=== PATIENT | male | born 1990 | race Caucasian/White ===

== ENCOUNTER 2016-09-08 20:14 | Emergency (ER) | payer OTHER ==
[2016-09-08 20:26] VITALS: BP 100/55; PULSE 85; TEMP 103.1; BMI 25.8
--- NOTE | 2016-09-08 20:47 | PDOC ---
History of Present Illness - History of Present Illness Initial Comments: 09/08/16 22:22 Patient is a 26 year old male with significant medical hx of upper respiratory infections and tonsillar hypertrophy who is presenting to the ED for fever, chills, myalgia, rhinorrhea, nasal congestion, lower back pain, cough, and posttussive vomiting since yesterday. Patient reports enlarged tonsils that are making it difficult for him to breathe and open his mouth. The patient has been eating and drinking well. He was hospitalized for the same symptoms last year and was scheduled for a tonsillectomy but never followed through. The patient did not receive the flu vaccine this year. <Flakita Barragan - Last Filed: 09/08/16 22:22> <Nava Augustin - Last Filed: 09/09/16 00:39> - General Chief Complaint: Pain Stated Complaint: FEVER/VOMITING Time Seen by Provider: 09/08/16 20:47 Past History <Flakita Barragan - Last Filed: 09/08/16 22:22> - Past Medical History Other medical history: chronic swollen lymph nodes - Immunization History Immunization Up to Date: Yes - Psycho/Social/Smoking Cessation Hx Anxiety: No Suicidal Ideation: No Smoking History: Never smoked Have you smoked in the past 12 months: No Number of Cigarettes Smoked Daily: 1 Hx Alcohol Use: No Drug/Substance Use Hx: No Substance Use Type: None <Nava Augustin - Last Filed: 09/09/16 00:39> - Past Medical History Allergies/Adverse Reactions: Allergies Allergy/AdvReac Type Severity Reaction Status Date / Time No Known Allergies Allergy Verified 09/08/16 20:26 Home Medications: Ambulatory Orders No Home Medications 0 dose .ROUTE UTDICT 07/15/13 Cyclobenzaprine HCl [Flexeril -] 10 mg PO TID PRN #15 tablet 01/15/16 Naproxen [Naprosyn -] 500 mg PO BID PRN #14 tablet 01/15/16 Oseltamivir Phosphate [Tamiflu -] 75 mg PO BID #10 capsule 09/08/16 Review of Systems - Review of Systems Comments:: 09/08/16 22:24 CONSTITUTIONAL: Present: fever, chills Absent: diaphoresis, generalized weakness, malaise, loss of appetite HEENT: Present: rhinorrhea, nasal congestion, throat pain, tonsillar swelling Absent: ear pain, eye pain, visual changes CARDIOVASCULAR: Absent: chest pain, syncope, palpitations, irregular heart rate, lightheadedness , peripheral edema RESPIRATORY: Present: cough Absent: shortness of breath, dyspnea with exertion, orthopnea, wheezing, stridor , hemoptysis GASTROINTESTINAL: Present: posttussive vomiting Absent: abdominal pain, abdominal distension, nausea, diarrhea, constipation, melena, hematochezia GENITOURINARY: Absent: dysuria, frequency, urgency, hesitancy, hematuria, flank pain, genital pain MUSCULOSKELETAL: Present: myalgia Absent: arthralgia, joint swelling SKIN: Absent: rash, itching, pallor HEMATOLOGIC/IMMUNOLOGIC: Absent: easy bleeding, easy bruising, lymphadenopathy, frequent infections ENDOCRINE: Absent: unexplained weight gain, unexplained weight loss, heat intolerance, cold intolerance NEUROLOGIC: Absent: headache, focal weakness or paresthesia, dizziness, unsteady gait, seizure, mental status changes, bladder or bowel incontinence. PSYCHIATRIC: Absent: anxiety, depression, suicidal or homicidal ideation, hallucinations <Flakita Barragan - Last Filed: 09/08/16 22:22> *Physical Exam - Vital Signs Last Vital Signs Temp Pulse Resp BP Pulse Ox 103.1 F H 85 18 100/55 09/08/16 20:21 09/08/16 20:21 09/08/16 20:21 09/08/16 20:21 - Physical Exam Comments: 09/08/16 22:28 GENERAL: Well developed, well nourished. Afebrile. Awake and alert. No acute distress. HEENT: Normocephalic, atraumatic. PERRLA, EOMI. No conjunctival pallor. Sclera are non- icteric. Moist mucous membranes. Oropharynx is clear. Enlarged tonsils. NECK: Supple. Full ROM. No JVD. Carotid pulses 2+ and symmetric, without bruits. No thyromegaly. No lymphadenopathy. CARDIOVASCULAR: Regular rate and rhythm. No murmurs, rubs, or gallops. Distal pulses are 2+ and symmetric. PULMONARY: No evidence of respiratory distress. Lungs clear to auscultation bilaterally. No wheezing, rales or rhonchi. ABDOMINAL: Soft. Non-tender. Non-distended. No rebound or guarding. No organomegaly. Normoactive bowel sounds. MUSCULOSKELETAL: Normal range of motion at all joints. No bony deformities or tenderness. No CVA tenderness. EXTREMITIES: No cyanosis. No clubbing. No edema. No calf tenderness. SKIN: Warm and dry. Normal capillary refill. No rashes. No jaundice. NEUROLOGICAL: Alert, awake, appropriate. Moving all extremities. Cranial nerves 2-12 intact. Normal speech. Toes are down-going bilaterally. Gait is normal without ataxia. PSYCHIATRIC: Cooperative. Good eye contact. Appropriate mood and affect. <Flakita Barragan - Last Filed: 09/08/16 22:22> - Vital Signs Last Vital Signs Temp Pulse Resp BP Pulse Ox 103.1 F H 85 18 100/55 09/08/16 20:21 09/08/16 20:21 09/08/16 20:21 09/08/16 20:21 <Nava Augustin - Last Filed: 09/09/16 00:39> ED Treatment Course - Medications Given in the ED: ED Medications Discontinued Medications Generic Name Dose Route Start Last Admin Trade Name Aldoq PRN Reason Stop Dose Admin Ibuprofen 600 mg 09/08/16 21:39 09/08/16 22:06 Motrin - PO 09/08/16 21:40 600 mg ONCE ONE Administration <Flakita Barragan - Last Filed: 09/08/16 22:22> Medical Decision Making - Medical Decision Making 09/08/16 22:30 pt comes with fever and sore throat and coughing up yellow. He never got the flu shot this year. He complains of GERD. He has no flank pain and no abd pain and no chest pain and he has no neuro deficits. 09/09/16 00:38 Pt has normal strep culture but has influenza positive culture; we will teat with tamiflu. <Nava Augustin - Last Filed: 09/09/16 00:39> *DC/Admit/Observation/Transfer - Attestations Scribe Attestion: 09/08/16 22:29 Documentation prepared by Flakita Barragan, acting as clinical specialist medical device for Nava Augustin MD. <Flakita Barragan - Last Filed: 09/08/16 22:22> - Discharge Dispostion Admit: No <Nava Augustin - Last Filed: 09/09/16 00:39> Diagnosis at time of Disposition: Influenza - Discharge Dispostion Disposition: HOME Condition at time of disposition: Stable - Prescriptions Prescriptions: Oseltamivir Phosphate [Tamiflu -] 75 mg PO BID #10 capsule - Referrals Referrals: Wendy Lisa MD [Primary Care Provider] - - Patient Instructions Printed Discharge Instructions: Influenza - Post Discharge Activity Work/School Note: Back to Work
[2016-09-08] MEDS ORDERED: IBUPROFEN 600 MG TABLET (FP) PO ONE ×2 (21:39→21:56)
[2016-09-08] MEDS ORDERED: AZITHROMYCIN 250 MG TABLET (FP) PO ONE (22:31)
[2016-09-08] MEDS ORDERED: AZITHROMYCIN 250 MG TABLET (FP) ONE (22:41)
[2016-09-08] MEDS ORDERED: OSELTAMIVIR PHOSPHATE 30 MG CAPSULE PO ONE (23:36)
[2016-09-08] MEDS ORDERED: OSELTAMIVIR PHOSPHATE 75 MG CAPSULE PO ONE (23:37)
[2016-09-08] MEDS ORDERED: OSELTAMIVIR PHOSPHATE 75 MG CAPSULE ONE (23:51)
== END 2016-09-09 00:04 | disposition home or self-care (01) ==
LOC: JER 20:14
DX: J09.X2 Influenza due to identified novel influenza A virus with other respiratory manifestations (principal); J35.1 Hypertrophy of tonsils
CPT/HCPCS: 71020-TC; 87070; 87430; 87804; 99282-25

== ENCOUNTER 2016-09-11 02:17 | Emergency (ER) | payer OTHER ==
[2016-09-11 02:28] VITALS: BP 127/79; PULSE 79; TEMP 97.7; BMI 25.8
[2016-09-11] MEDS ORDERED: SODIUM CHLORIDE 0.9% 1000 ML INFUS.BAG IV ONE (02:52)
[2016-09-11] MEDS ORDERED: MAG HYDROX/AL HYDROX/SIMETH 30 ML UNIT-DOSE CUP PO ONE (02:52)
[2016-09-11] MEDS ORDERED: FAMOTIDINE 20 MG/50 ML IVPB 50 ML IVPB ONE ×2 (02:52→02:57)
[2016-09-11] MEDS ORDERED: MAG HYDROX/AL HYDROX/SIMETH 30 ML UNIT-DOSE CUP ONE (02:56)
[2016-09-11] MEDS ORDERED: ONDANSETRON 4 MG/2 ML VIAL ONE (02:57)
[2016-09-11 02:59] LABS: BASOPHIL 0.3 % (0-2.0); EOSINOPHIL 1.3 % (0-4.5); MCH 28.4 pg (25.7-33.7); MCHC 34.2 g/dl (32.0-35.9); MEAN CELL VOLUME 82.9 fl (80-96); MEAN PLT VOLUME 9.5 fl (7.5-11.1); NEUTROPHILS 37.4 % (42.8-82.8); PLATELET COUNT 147 K/MM3 (134-434); RDW 12.3 % (11.9-15.9); WHITE BLOOD COUNT 5.2 K/mm3 (4.0-10.0)
[2016-09-11] MEDS ORDERED: ONDANSETRON 4 MG/2 ML VIAL IVPUSH ONE (03:08)
[2016-09-11 04:10] LABS: ALBUMIN 3.6 g/dl (3.4-5.0); ALK PHOS 68 U/L (45-117); ANION GAP 11 (8-16); BILIRUBIN,TOTAL 0.3 mg/dL (0.2-1.0); CALCIUM 8.6 mg/dL (8.5-10.1); CO2 29 mmol/L (21-32); GLUCOSE,RANDOM 89 mg/dL (74-106); SGOT/AST 23 U/L (15-37); SGPT/ALT 24 U/L (12-78); TOT PROT 7.1 g/dl (6.4-8.2)
--- NOTE | 2016-09-11 04:18 | PDOC ---
History of Present Illness - General Chief Complaint: Pain Stated Complaint: ABD PAIN Time Seen by Provider: 09/11/16 02:29 Past History - Past Medical History Allergies/Adverse Reactions: Allergies Allergy/AdvReac Type Severity Reaction Status Date / Time No Known Allergies Allergy Verified 09/11/16 02:25 Home Medications: Ambulatory Orders Oseltamivir Phosphate [Tamiflu -] 75 mg PO BID #10 capsule 09/08/16 Other medical history: denies - Immunization History Immunization Up to Date: Yes - Psycho/Social/Smoking Cessation Hx Anxiety: No Suicidal Ideation: No Smoking History: Never smoked Have you smoked in the past 12 months: No Number of Cigarettes Smoked Daily: 0 Cigars Per Day: 0 Information on smoking cessation initiated: No Hx Alcohol Use: No Drug/Substance Use Hx: No Substance Use Type: None *Physical Exam - Vital Signs Last Vital Signs Temp Pulse Resp BP Pulse Ox 97.7 F 79 20 127/79 100 09/11/16 02:25 09/11/16 02:25 09/11/16 02:25 09/11/16 02:25 09/11/16 02:25 ED Treatment Course - LABORATORY CBC & Chemistry Diagram: 09/11/16 02:50 09/11/16 02:50 - ADDITIONAL ORDERS Additional order review: Laboratory Results 09/11/16 02:50 Sodium 139 Potassium 3.7 Chloride 99 Carbon Dioxide 29 Anion Gap 11 BUN 18 Creatinine 1.0 Creat Clearance w eGFR > 60 Random Glucose 89 Calcium 8.6 Total Bilirubin 0.3 D AST 23 D ALT 24 Alkaline Phosphatase 68 D Total Protein 7.1 Albumin 3.6 Lipase 145 09/11/16 02:50 RBC 5.12 MCV 82.9 MCHC 34.2 RDW 12.3 MPV 9.5 Neutrophils % 37.4 L D Lymphocytes % 43.2 H D Monocytes % 17.8 H D Eosinophils % 1.3 D Basophils % 0.3 - Medications Given in the ED: ED Medications Discontinued Medications Generic Name Dose Route Start Last Admin Trade Name Freq PRN Reason Stop Dose Admin Al Hydroxide/Mg Hydroxide 30 ml 09/11/16 02:52 09/11/16 03:07 Mylanta Oral Suspension - PO 09/11/16 02:53 30 ml ONCE ONE Administration Famotidine/Sodium Chloride 50 mls @ 100 mls/hr 09/11/16 02:52 09/11/16 03:08 Pepcid 20 Mg Premixed Ivpb - IVPB 09/11/16 03:21 100 mls/hr ONCE ONE Administration Ondansetron HCl 4 mg 09/11/16 03:08 09/11/16 03:08 Zofran Injection IVPUSH 09/11/16 03:09 4 mg NOW ONE Administration Sodium Chloride 1,000 ml 09/11/16 02:52 09/11/16 03:08 Normal Saline - IV 09/11/16 02:53 1,000 ml ONCE ONE Administration *DC/Admit/Observation/Transfer Diagnosis at time of Disposition: Abdominal pain Qualifiers: Abdominal location: epigastric Qualified Code(s): R10.13 - Epigastric pain - Discharge Dispostion Disposition: HOME Condition at time of disposition: Stable Admit: No - Referrals Referrals: Wendy Lisa MD [Primary Care Provider] - - Patient Instructions Printed Discharge Instructions: DI for Abdominal Pain-Adult Additional Instructions: Please follow up with Dr. Campos tomorrow. If you experience vomiting , diarrhea, fever, chills, rectal bleeding, blood in vomit, or have any new or worsening symptoms, please return to the ER. Por favor, siga con el Dr. Beth foote. Si experimenta vmitos, diarrea, fiebre, escalofros, sangrado rectal, katerina en vmito, o si tiene s ntomas nuevos o que empeoran, regrese a la yolanda de emergencias. Print Language: UKRAINIAN
== END 2016-09-11 04:36 | disposition home or self-care (01) ==
LOC: JER 02:17
PROC: 3E033GC Introduction of Other Therapeutic Substance into Peripheral Vein, Percutaneous Approach (ICD-10-PCS; principal; 2016-09-11)
DX: R10.13 Epigastric pain (principal)
CPT/HCPCS: 36415; 80053; 83690; 85025; 96365; 96375; 99283-25

== ENCOUNTER 2016-10-28 21:37 | Emergency (ER) | payer OTHER ==
[2016-10-28 22:03] VITALS: BP 132/78; PULSE 62; TEMP 98.3; BMI 26.6
[2016-10-28] MEDS ORDERED: AMOX TR/POT CLAV 875MG/125MG TABLETS (FP) PO ONE (23:37)
--- NOTE | 2016-10-28 23:37 | PDOC ---
[id number] is a 26 year old male, with a significant past medical history, who presents to the emergency department with pain to his left 4th digit s/p amputation earlier today at [facility]. He states he was seen at [facility] earlier today, however, was unable to picker tender medication because his pharmacy was closed. He reports his pain has increase in intensity and has radiated up his left arm to his left anterior chest. He also states he would like the dressing of his wound changed. He denies shortness of breath, headache and dizziness. He denies fever, chills, nausea, vomit, diarrhea and constipation. He denies dysuria, frequency, urgency and hematuria. Allergies: NKDA PCP - Dr. Lisa <Nathalia Warren - Last Filed: 10/29/16 01:46> <Angelica Shepherd - Last Filed: 10/29/16 16:47> - General Chief Complaint: Injury Stated Complaint: LT HAND LACERATION Time Seen by Provider: 10/28/16 23:30 Past History <Nathalia Warren - Last Filed: 10/29/16 01:46> - Past Medical History Other medical history: denies - Immunization History Immunization Up to Date: Yes - Psycho/Social/Smoking Cessation Hx Anxiety: No Suicidal Ideation: No Smoking History: Never smoked Have you smoked in the past 12 months: No Number of Cigarettes Smoked Daily: 0 Cigars Per Day: 0 Hx Alcohol Use: No Drug/Substance Use Hx: No Substance Use Type: None <Angelica Shepherd - Last Filed: 10/29/16 16:47> - Past Medical History Allergies/Adverse Reactions: Allergies Allergy/AdvReac Type Severity Reaction Status Date / Time No Known Allergies Allergy Verified 10/28/16 22:00 Home Medications: Ambulatory Orders NK [No Known Home Medication] 10/28/16 Review of Systems - Review of Systems Able to Perform ROS?: Yes Comments:: 10/29/16 00:55 CONSTITUTIONAL: Absent: fever, chills, diaphoresis, generalized weakness, malaise, loss of appetite HEENT: Absent: rhinorrhea, nasal congestion, throat pain, throat swelling, difficulty swallowing, mouth swelling, ear pain, eye pain, visual Changes CARDIOVASCULAR: (+) anterior left chest pain. Absent: syncope, palpitations, irregular heart rate, lightheadedness, peripheral edema RESPIRATORY: Absent: cough, shortness of breath, dyspnea with exertion, orthopnea, wheezing, stridor, hemoptysis GASTROINTESTINAL: Absent: abdominal pain, abdominal distension, nausea, vomiting, diarrhea, constipation, melena, hematochezia GENITOURINARY: Absent: dysuria, frequency, urgency, hesitancy, hematuria, flank pain, genital pain MUSCULOSKELETAL: (+) Left 4th digit pain radiating up left arm s/p amputation of digit. Absent: myalgia, arthralgia, joint swelling SKIN: Absent: rash, itching, pallor HEMATOLOGIC/IMMUNOLOGIC: Absent: easy bleeding, easy bruising, lymphadenopathy, frequent infections ENDOCRINE: Absent: unexplained weight gain, unexplained weight loss, heat intolerance, cold intolerance NEUROLOGIC: Absent: headache, focal weakness or paresthesias, dizziness, unsteady gait, seizure, mental status changes, bladder or bowel incontinence PSYCHIATRIC: Absent: anxiety, depression, suicidal or homicidal ideation, hallucinations. <Nathalia Warren - Last Filed: 10/29/16 01:46> *Physical Exam - Vital Signs Last Vital Signs Temp Pulse Resp BP Pulse Ox 98.3 F 62 20 132/78 99 10/28/16 22:00 10/28/16 22:00 10/28/16 22:00 10/28/16 22:00 10/28/16 22:00 - Physical Exam Comments: 10/29/16 00:56 GENERAL: Well developed, well nourished. Awake and alert. No acute distress. HEENT: Normocephalic, atraumatic. PERRLA, EOMI. No conjunctival pallor. Sclera are non- icteric. Moist mucous membranes. Oropharynx is clear. NECK: Supple. Full ROM. No JVD. Carotid pulses 2+ and symmetric, without bruits. No thyromegaly. No lymphadenopathy. CARDIOVASCULAR: (+) bradycardic rate. No murmurs, rubs, or gallops. Distal pulses are 2+ and symmetric. PULMONARY: No evidence of respiratory distress. Lungs clear to auscultation bilaterally. No wheezing, rales or rhonchi. ABDOMINAL: Soft. Non-tender. Non-distended. No rebound or guarding. No organomegaly. Normoactive bowel sounds. MUSCULOSKELETAL Normal range of motion at all joints. No bony deformities or tenderness. No CVA tenderness. EXTREMITIES: (+) left 4th digit DIP amputation. NEUROLOGICAL: Alert, awake, appropriate. Cranial nerves 2-12 intact. Normoreflexic in the upper and lower extremities. Normal speech. Toes are down-going bilaterally. Gait is normal without ataxia. PSYCHIATRIC: Cooperative. Good eye contact. Appropriate mood and affect. <Nathalia Warren - Last Filed: 10/29/16 01:46> - Vital Signs Last Vital Signs Temp Pulse Resp BP Pulse Ox 98.3 F 62 20 132/78 99 10/28/16 22:00 10/28/16 22:00 10/28/16 22:00 10/28/16 22:00 10/28/16 22:00 <Agnelica Shepherd - Last Filed: 10/29/16 16:47> ED Treatment Course - Medications Given in the ED: ED Medications Discontinued Medications Generic Name Dose Route Start Last Admin Trade Name Freq PRN Reason Stop Dose Admin Amoxicillin/Clavulanate Potassium 1 tab 10/28/16 23:37 10/29/16 00:03 Augmentin - 875mg Tablet PO 10/28/16 23:38 1 tab ONCE ONE Administration Oxycodone/Acetaminophen 1 combo 10/28/16 23:38 10/29/16 00:04 Percocet 5/325 - PO 10/28/16 23:39 1 combo ONCE ONE Administration <Nathalia Warren - Last Filed: 10/29/16 01:46> - LABORATORY CBC & Chemistry Diagram: 10/29/16 02:00 10/29/16 02:00 <Angelica Shepherd - Last Filed: 10/29/16 16:47> Medical Decision Making - Medical Decision Making 10/29/16 01:15 26 yo male was seen at [facility] today(actually 10/28/16 ,discharged about 4pm) because he was treated 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 -he has with him his hospital records from [facility] that states he received IV ancef,IV morphine and tetanus injection He presents to our ER because he did not fill his prescriptions for his augmentin and percocet and he has pain in this injured finger -he has a gauze and a splint on the injured finger 10/29/16 01:18 pt later started to complain of left anterior chest pain ekg is sinus julee @ 56bpm, rt axis deviatoin and nonspecific ST and T wave abnormality . I do not have a prior ekg 10/29/16 01:35 plan-will obtain cardiac enzymes <Angelica Shepherd - Last Filed: 10/29/16 16:47> *DC/Admit/Observation/Transfer - Attestations Scribe Attestion: 10/29/16 00:56 Documentation prepared by Nathalia Warren, acting as medical insurance claims specialist for Angelica Shepherd MD <Nathalia Warren - Last Filed: 10/29/16 01:46> <Angelica Shepherd - Last Filed: 10/29/16 16:47> Diagnosis at time of Disposition: Chest pain, Finger pain, left - Discharge Dispostion Disposition: HOME Condition at time of disposition: Stable - Referrals Referrals: Wendy Lisa MD [Primary Care Provider] - - Patient Instructions Printed Discharge Instructions: DI for Chest Pain, DI for Traumatic Amputation Additional Instructions: Please follow up with [facility] as you are supposed to. TAke the medication you have been already been prescribed. Keep wound clean and dry. WAsh daily with soap and water. Print Language: ENGLISH
[2016-10-28] MEDS ORDERED: OXYCODONE/APAP 5/325MG COMBO TABLET PO ONE (23:38)
[2016-10-29] MEDS ORDERED: OXYCODONE/APAP 5/325MG COMBO TABLET ONE (00:01)
[2016-10-29] MEDS ORDERED: AMOX TR/POT CLAV 875MG/125MG TABLETS (FP) ONE (00:02)
[2016-10-29 02:11] LABS: BASOPHIL 0.6 % (0-2.0); MCH 28.8 pg (25.7-33.7); MEAN CELL VOLUME 84.8 fl (80-96); MEAN PLT VOLUME 9.1 fl (7.5-11.1); NEUTROPHILS 66.1 % (42.8-82.8); PLATELET COUNT 191 K/MM3 (134-434); RDW 13.7 % (11.9-15.9); WHITE BLOOD COUNT 9.7 K/mm3 (4.0-10.0)
[2016-10-29 02:33] LABS: TROPONIN I < 0.02 ng/ml (0.00-0.05)
[2016-10-29 02:55] LABS: ALBUMIN 3.7 g/dl (3.4-5.0); ANION GAP 10 (8-16); BILIRUBIN,TOTAL 0.4 mg/dL (0.2-1.0); CALCIUM 8.4 mg/dL (8.5-10.1); CO2 27 mmol/L (21-32); CREATININE 0.8 mg/dL (0.7-1.3); GLUCOSE,RANDOM 100 mg/dL (74-106); SGOT/AST 26 U/L (15-37); SGPT/ALT 25 U/L (12-78); TOT PROT 6.3 g/dl (6.4-8.2)
[2016-10-29 02:56] LABS: ALK PHOS 86 U/L (45-117)
[2016-10-29] MEDS ORDERED: IBUPROFEN 400 MG TABLET (FP) PO ONE ×2 (05:03→05:22)
[2016-10-29 05:26] LABS: TROPONIN I < 0.02 ng/ml (0.00-0.05)
--- NOTE | 2016-10-29 05:52 | PDOC ---
*Physical Exam - Vital Signs Last Vital Signs Temp Pulse Resp BP Pulse Ox 98.3 F 62 20 132/78 99 10/28/16 22:00 10/28/16 22:00 10/28/16 22:00 10/28/16 22:00 10/28/16 22:00 ED Treatment Course - LABORATORY CBC & Chemistry Diagram: 10/29/16 02:00 10/29/16 02:00 - ADDITIONAL ORDERS Additional order review: Laboratory Results 10/29/16 10/29/16 10/29/16 04:55 04:55 02:00 Sodium Potassium Chloride Carbon Dioxide Anion Gap BUN Creatinine Creat Clearance w eGFR Random Glucose Calcium Total Bilirubin AST ALT Alkaline Phosphatase Creatine Kinase 391 H Creatine Kinase Index CK-MB (CK-2) CK-MB (CK-2) Rel Index Cancelled Cancelled Troponin I < 0.02 Total Protein Albumin 10/29/16 10/29/16 02:00 02:00 Sodium 140 Potassium 3.9 Chloride 103 Carbon Dioxide 27 Anion Gap 10 BUN 10 D Creatinine 0.8 Creat Clearance w eGFR > 60 Random Glucose 100 Calcium 8.4 L Total Bilirubin 0.4 D AST 26 ALT 25 Alkaline Phosphatase 86 D Creatine Kinase 437 H Creatine Kinase Index 0.6 CK-MB (CK-2) 2.648 CK-MB (CK-2) Rel Index Troponin I < 0.02 Total Protein 6.3 L Albumin 3.7 10/29/16 02:00 RBC 4.76 MCV 84.8 MCHC 34.0 RDW 13.7 D MPV 9.1 Neutrophils % 66.1 D Lymphocytes % 23.2 D Monocytes % 8.1 Eosinophils % 2.0 Basophils % 0.6 - Medications Given in the ED: ED Medications Discontinued Medications Generic Name Dose Route Start Last Admin Trade Name Freq PRN Reason Stop Dose Admin Amoxicillin/Clavulanate Potassium 1 tab 10/28/16 23:37 10/29/16 00:03 Augmentin - 875mg Tablet PO 10/28/16 23:38 1 tab ONCE ONE Administration Ibuprofen 800 mg 10/29/16 05:03 10/29/16 05:27 Motrin - PO 10/29/16 05:04 800 mg ONCE ONE Administration Oxycodone/Acetaminophen 1 combo 10/28/16 23:38 10/29/16 00:04 Percocet 5/325 - PO 10/28/16 23:39 1 combo ONCE ONE Administration Medical Decision Making - Medical Decision Making 10/29/16 05:50 cardiac enzymes are times two are negative. bandage changed. Wound cleaned. Pt to follow up with [facility] as scheduled. *DC/Admit/Observation/Transfer Diagnosis at time of Disposition: Chest pain, Finger pain, left - Discharge Dispostion Disposition: HOME Condition at time of disposition: Stable Admit: No - Referrals Referrals: Wendy Lisa MD [Primary Care Provider] - - Patient Instructions Printed Discharge Instructions: DI for Chest Pain, DI for Traumatic Amputation Additional Instructions: Please follow up with [facility] as you are supposed to. TAke the medication you have been already been prescribed. Keep wound clean and dry. WAsh daily with soap and water. Print Language: NIGERIEN - Post Discharge Activity
--- NOTE | 2016-10-29 10:56 | EKG ---
Test Reason : Blood Pressure : / mmHG Vent. Rate : 056 BPM Atrial Rate : 056 BPM P-R Int : 132 ms QRS Dur : 092 ms QT Int : 406 ms P-R-T Axes : 012 129 106 degrees QTc Int : 391 ms SINUS BRADYCARDIA RSR' OR QR PATTERN IN V1 SUGGESTS RIGHT VENTRICULAR CONDUCTION DELAY NONSPECIFIC ST AND T WAVE ABNORMALITY ABNORMAL ECG NO PREVIOUS ECGS AVAILABLE Confirmed by RM HOYT MD ([id number]) on 10/29/2016 10:56:15 AM Referred By: Confirmed By:RM HOYT MD
== END 2016-10-29 06:11 | disposition home or self-care (01) ==
LOC: JER 21:37 → JERFT 21:37 → JER 10-29 06:11
DX: M79.645 Pain in left finger(s) (principal); R07.9 Chest pain, unspecified
CPT/HCPCS: 36415; 71020-TC; 80053; 82550; 82553; 84484; 85025; 93005; 93010; 99284-25